=== PATIENT | male | born 1970 | race Hispanic/Latino ===

== ENCOUNTER 2016-07-08 20:14 | Emergency (ER) | payer OTHER ==
[~2016-07-08] VITALS: Ht 177.8 cm; Wt 83.9 kg
[~2016-07-08 20:14] MED LIST: ASPIRIN325 MG PO; FISH OIL500 MG PO; GAS-X80 MG PO; GLUCOPHAGE XR750 MG PO; JANUVIA100 MG PO; SIMVASTATIN10 MG PO; TRILIPIX135 MG PO; TUMS500 MG PO
[2016-07-08 21:03] LABS: HEMATOCRIT 51.1 % (38.0-50.0); MCH 27.9 PG (29.0-34.0); MCHC 32.5 G/DL (30.0-36.0); MCV 85.9 FL (86-99); PLATELET COUNT 266 K/uL (156-360); RBC DIS.WIDTH-SD 40.3 % (39-53); RED BLOOD COUNT 5.95 M/uL (4.00-5.50); WHITE BLOOD COUNT 12.7 K/uL (4.1-10.2)
[2016-07-08 21:05] LABS: CHLORIDE 107 mEq/L (99-109); POTASSIUM 4.1 mEq/L (3.7-5.4); SODIUM 142 mEq/L (136-147)
[2016-07-08 21:07] LABS: GLUCOSE 171 mg/dL (70-99)
[2016-07-08 21:08] LABS: ANION GAP 12 MEQ/L (2-14)
[2016-07-08 21:09] LABS: TOTAL BILIRUBIN 0.4 mg/dL (0.0-1.0)
[2016-07-08 21:11] LABS: ALKALINE PHOSPHATASE 59 IU/L (3-129); GFR ESTIMATE (CALCULATED) > 59 mL/min/
[2016-07-08 21:12] LABS: UREA NITROGEN (BUN) 15 mg/dL (9-23)
[2016-07-08 21:38] LABS: ADD MIUA? NO; BILIRUBIN NEGATIVE; BLOOD NEGATIVE; COLOR YELLOW ((YELLOW)); GLUCOSE (STRIP) >=500; KETONES NEGATIVE; LEUKOCYTES NEGATIVE; NITRITE NEGATIVE; PROTEIN (STRIP) NEGATIVE; SPECIFIC GRAVITY 1.031 (1.000-1.030); UCUL ADDED? NO; UROBILINOGEN 0.2 MG/DL (0.2-1.0)
[2016-07-08 22:28] LABS: CREATINE KINASE 68 IU/L (1-294)
[2016-07-08 22:42] LABS: INFLUENZA A VIRAL ANTIGEN NEGATIVE; INFLUENZA B VIRAL ANTIGEN NEGATIVE
[2016-07-08] MEDS ORDERED: ZOFRAN ODT4 MG PO (22:48)
[2016-07-08 22:52] VITALS: BP 112/69
== END 2016-07-08 22:55 | disposition home or self-care (01) ==
LOC: EME 20:14
PROVIDERS: Physician Assistant
DX: R11.2 Nausea with vomiting, unspecified (principal); E86.0 Dehydration; M79.1 Myalgia; E11.9 Type 2 diabetes mellitus without complications; Z79.84 Long term (current) use of oral hypoglycemic drugs; Z79.82 Long term (current) use of aspirin
CPT/HCPCS: 80053; 81003; 82550; 85027; 87502; 99281; 99284; J1885; J2405; J7030